=== PATIENT | female | born 1985 | race Caucasian/White ===

== ENCOUNTER 2018-08-21 17:31 | Emergency (ER) | payer BC, OTHER ==
[~2018-08-21] VITALS: Ht 162.6 cm; Wt 72.6 kg
[2018-08-21 17:31] VITALS: BP_SYST 144
[~2018-08-21 17:31] MED LIST: CIPR-260 PO; HYDR-1189 PO; METR500T PO; SEASONIQUE PO
[2018-08-21] MEDS ORDERED: NACL 0.9% 1,000 ML IV ONE (18:30)
[2018-08-21 18:43] LABS: BILIRUBIN,URINE NEGATIVE (NEGATIVE); BLOOD, URINE NEGATIVE (NEGATIVE); CLARITY/URINE CLEAR (CLEAR); COLOR,URINE YELLOW (YELLOW); GLUCOSE,URINE NEGATIVE (NEGATIVE); KETONES,URINE NEGATIVE (NEGATIVE); LEUKOCYTE ESTERASE ,URINE TRACE (NEGATIVE); NITRITE, URINE NEGATIVE (NEGATIVE); PH,URINE 6.5 (5.0-8.0); PROTEIN URINE NEGATIVE (NEGATIVE); UROBILINOGEN,URINE 0.2 (0.2-1.0)
[2018-08-21 19:10] LABS: BASOPHILS % (AUTO) 0.2 % (0.0-2.0); EOSINOPHILS % (AUTO) 0.3 % (0.0-4.0); HEMATOCRIT 39.9 % (36-48); LYMPHOCYTES # (AUTO) 1.5 K/uL (1.0-5.5); LYMPHOCYTES % (AUTO) 14.1 % (20.5-51.5); MEAN CORPUSCULAR HEMOGLOBIN 29 pg (27-31); MEAN CORPUSCULAR HGB CONC 33 % (32-36); MEAN CORPUSCULAR VOLUME 89 fL (79.0-98.0); MONOCYTES # (AUTO) 0.7 K/uL (0.0-1.0); MONOCYTES % (AUTO) 6.1 % (1.7-9.3); NEUTROPHILS # (AUTO) 8.6 K/uL (1.8-7.7); NEUTROPHILS % (AUTO) 79.3 % (40.0-70.0); PLATELET COUNT (AUTO) 235 K/uL (130-430); RED CELL DISTRIBUTION WIDTH 11.9 % (9.0-15.0); WHITE BLOOD COUNT (AUTO) 10.8 K/uL (4.8-10.8)
[2018-08-21 19:11] LABS: RBC,URINE 0-3 /HPF (0-3)
[2018-08-21 19:12] LABS: BACTERIA,URINE FEW /HPF (None Seen); MUCUS,URINE None Seen /LPF (None Seen)
[2018-08-21 19:14] LABS: CALCIUM 8.7 mg/dL (8.4-11.0); CREATININE 0.92 mg/dL (0.55-1.30); POTASSIUM 3.5 mmol/L (3.5-5.1)
[2018-08-21 19:18] LABS: ALBUMIN 3.7 g/dL (3.4-4.8); TOTAL BILIRUBIN 0.7 mg/dL (0.0-1.0)
[2018-08-21] MEDS ORDERED: KETOROLAC TROMETHAMINE 30 MG VIAL IVP ONE (20:00)
[2018-08-22] MEDS ORDERED: HYDROcodone/ACETAMIN 10-325 MG TAB PO ONE
[2018-08-22] MEDS ORDERED: KETOROLAC TROMETHAMINE 15 MG VIAL IVP ONE
[2018-08-22 00:24] VITALS: BP_SYST 144
== END 2018-08-22 00:24 | disposition home or self-care (01) ==
LOC: SED 17:31
DX: N83.209 Unspecified ovarian cyst, unspecified side (principal); Z90.49 Acquired absence of other specified parts of digestive tract; Z79.899 Other long term (current) drug therapy; Z88.1 Allergy status to other antibiotic agents
CPT/HCPCS: 36415; 71045; 74176; 76830; 76857; 80053; 81000; 81025; 83605; 85025; 85610; 85730; 87040; 87086; 96374; 96376; 99285; J1885 ×2; J7030

== ENCOUNTER 2019-04-15 14:07 | Emergency (ER) | payer OTHER ==
[~2019-04-15] VITALS: Ht 162.6 cm; Wt 79.4 kg
[2019-04-15 14:07] VITALS: BP_SYST 129
--- NOTE | 2019-04-15 14:07 | NUR ---
BROUGHT BACK TO BED #4 AND TRIAGED. REPORT GIVEN TO CHANNING
--- NOTE | 2019-04-15 14:08 | NUR ---
Pt brought by self, A&Ox4, pt presents to ER with redness and pain on recent LAC RLE, small amount of yellow discharge noted, pt is afebrile, skin pink and warm, cap refill <3, VSS, respirations even and unlabored.
--- NOTE | 2019-04-15 14:28 | NUR ---
Crissy Roblero DIAGNOSTIC ASSISTANT at bedside examining patient
[2019-04-15] MEDS ORDERED: SULFAMETHOXAZOLE/TRIMETHOPR DS 1 TABLET PO ONE (14:45)
[2019-04-15] MEDS ORDERED: BACITRACIN 1 GM OINT TP ONE (14:45)
[2019-04-15] MEDS ORDERED: DIPH-TET-PERTUS Vaccine 0.5 ML VIAL (ADACEL) I.M. ONE (14:45)
[2019-04-15 15:05] VITALS: BP_SYST 122
--- NOTE | 2019-04-15 15:07 | NUR ---
Patient given written and verbal discharge instructions and verbalizes understanding. ER MD discussed with patient the results and treatment provided. Patient in stable condition. ID arm band removed. Rx of Bactrim ,Mupirocin and Motrin given. Patient educated on pain management and to follow up with PMD. Pain Scale 3/10 tolerable for patient. Opportunity for questions provided and answered. Medication side effect fact sheet provided.
== END 2019-04-15 15:07 | disposition home or self-care (01) ==
LOC: SED 14:07
DX: S80.12XA Contusion of left lower leg, initial encounter (principal); L03.116 Cellulitis of left lower limb; R03.0 Elevated blood-pressure reading, without diagnosis of hypertension; Z90.89 Acquired absence of other organs; Z88.1 Allergy status to other antibiotic agents; Z79.899 Other long term (current) drug therapy; X58.XXXA Exposure to other specified factors, initial encounter; Y93.89 Activity, other specified; Y92.89 Other specified places as the place of occurrence of the external cause; Y99.8 Other external cause status
CPT/HCPCS: 87070-TC; 90715; 99283